=== PATIENT | male | born 1990 | race Caucasian/White ===

== ENCOUNTER 2021-11-14 07:08 | Emergency (ER) | payer MEDICAID ==
[~2021-11-14] VITALS: Ht 180.3 cm; Wt 127.7 kg
[~2021-11-14 07:08] MED LIST: ATOM40CA PO; BENZ200C47 PO; DEXT10CA PO; HYDR-3164 PO; HYDR25TA PO; LORA1TAB PO; LOXA10CA PO; LOXA5CAP PO
[2021-11-14 07:37] VITALS: BP 140/97
[2021-11-14] MEDS ORDERED: DIPHTH,PERTUSS(ACELL),TET TOX 0.5 ML DISP.SYRIN. VAX IM ONE (07:45)
--- NOTE | 2021-11-14 07:50 | PHYS DOC ---
Past Medical History Past Medical History: Bipolar, Other Additional Past Medical Histor: AUTISM, BEHAVIOR MOOD DISORDER, ADHD Past Surgical History: No Surgical History Additional Past Surgical Histo: CA mole removed from R)cheek when a child. Smoking Status: Never Smoker Alcohol Use: None Drug Use: None General Adult EDM: Chief Complaint: HAND PROBLEM HPI: HPI: Patient is a 31 year old male presents to the ER with a burn to his left thumb. Patient states that he burned his thumb on a piece of pizza yesterday. Denies any pain. Reports blistering of the volar aspect of the thumb. Unknown when last tetanus was. Review of Systems: Review of Systems: Constitutional: Denies fever or chills. [] Eyes: Denies change in visual acuity. [] HENT: Denies nasal congestion or sore throat. [] Respiratory: Denies cough or shortness of breath. [] Cardiovascular: Denies chest pain or edema. [] GI: Denies abdominal pain, nausea, vomiting, bloody stools or diarrhea. [] : Denies dysuria. [] Musculoskeletal: Denies back pain or joint pain. [] Integument: Blister and burn of the left thumb denies rash. [] Neurologic: Denies headache, focal weakness or sensory changes. [] Endocrine: Denies polyuria or polydipsia. [] Lymphatic: Denies swollen glands. [] Psychiatric: Denies depression or anxiety. [] Heart Score: C/O Chest Pain: No Risk Factors: Risk Factors: DM, Current or recent (<one month) smoker, HTN, HLP, family history of CAD, obesity. Risk Scores: Score 0 - 3: 2.5% MACE over next 6 weeks - Discharge Home Score 4 - 6: 20.3% MACE over next 6 weeks - Admit for Clinical Observation Score 7 - 10: 72.7% MACE over next 6 weeks - Early Invasive Strategies Current Medications: Current Medications Medications (Trade) Dose Ordered Sig/Jennifer Start Time Stop Time Status Last Admin Dose Admin Cephalexin HCl (Keflex) 500 mg BID 11/14/21 08:00 Diphtheria/ Tetanus/Acell Pertussis (Boostrix) 0.5 ml ONCE ONCE 11/14/21 07:45 11/14/21 07:47 DC Allergies: Allergies: Allergies Coded Allergies Type Severity Reaction Last Updated Verified citalopram Adverse Reaction Mild 11/14/21 Yes Physical Exam: PE: Constitutional: Well developed, well nourished, no acute distress, non-toxic appearance. [] HENT: Normocephalic, atraumatic, bilateral external ears normal, oropharynx moist, no oral exudates, nose normal. [] Eyes: PERRLA, EOMI, conjunctiva normal, no discharge. [] Neck: Normal range of motion, no tenderness, supple, no stridor. [] Cardiovascular:Heart rate regular rhythm, no murmur [] Lungs & Thorax: Bilateral breath sounds clear to auscultation [] Abdomen: Bowel sounds normal, soft, no tenderness, no masses, no pulsatile masses. [] Skin: Blistering of the left thumb. Warm, dry, no erythema, no rash. [] Back: No tenderness, no CVA tenderness. [] Extremities: No tenderness, no cyanosis, no clubbing, ROM intact, no edema. [] Neurologic: Alert and oriented X 3, normal motor function, normal sensory function, no focal deficits noted. [] Psychologic: Affect normal, judgement normal, mood normal. [] Current Patient Data: Vital Signs: Vital Signs Date Time Temp Pulse Resp B/P (MAP) Pulse Ox O2 Delivery O2 Flow Rate FiO2 11/14/21 07:37 98.4 103 16 140/97 (111) 98 Room Air 98.4 EKG: EKG: [] Radiology/Procedures: Radiology/Procedures: [] Course & Med Decision Making: Course & Med Decision Making Pertinent Labs and Imaging studies reviewed. (See chart for details) [] Tetanus is updated patient started on antibiotics. Mother does not want pain medication and states that she will manage with Tylenol as patient's pain is not that bad. Patient is right-hand dominant. AppEnsure Disclaimer: AppEnsure Disclaimer: This electronic medical record was generated, in whole or in part, using a voice recognition dictation system. Departure Departure Referrals: SANDY ARSHAD PA-C (PCP) CECILIA HOROWITZ DO Nov 14, 2021 07:50
[2021-11-14] MEDS ORDERED: CEPH500C PO (07:54)
[2021-11-14] MEDS ORDERED: CEPHALEXIN 250 MG CAPSULE. PO SCH (08:00)
== END 2021-11-14 08:11 | disposition home or self-care (01) ==
LOC: ER 07:08
DX: T23.212A Burn of second degree of left thumb (nail), initial encounter (principal); F31.9 Bipolar disorder, unspecified; F39 Unspecified mood [affective] disorder; F90.9 Attention-deficit hyperactivity disorder, unspecified type; Z88.8 Allergy status to other drugs, medicaments and biological substances; X10.1XXA Contact with hot food, initial encounter; Y93.89 Activity, other specified; Y92.89 Other specified places as the place of occurrence of the external cause; Y99.8 Other external cause status
CPT/HCPCS: 90471; 90715; 99283-25

== ENCOUNTER 2021-12-16 12:30 | Emergency (ER) | payer MEDICAID ==
[~2021-12-16] VITALS: Ht 180.3 cm; Wt 119.9 kg
[~2021-12-16 12:30] MED LIST changes: +CEPH500C PO
[2021-12-16 12:32] VITALS: BP 178/108
--- NOTE | 2021-12-16 13:25 | PHYS DOC ---
Past Medical History Past Medical History: Bipolar, Other Additional Past Medical Histor: AUTISM, BEHAVIOR MOOD DISORDER, ADHD Past Surgical History: No Surgical History Additional Past Surgical Histo: CA mole removed from R)cheek when a child. Smoking Status: Never Smoker Alcohol Use: None Drug Use: None General Adult EDM: Chief Complaint: OTHER COMPLAINTS HPI: HPI: Patient is a 31 year old with a history of autism and bipolar disorder who presents to the emergency department today with concerns for bruising. Mom states that she was giving him a haircut this morning when she noticed bruising on his upper back. She states that this afternoon at the [employer] she noticed bruising to his lower abdomen as well as to both anterior thighs. She denies any recent falls or trauma. She denies any recent infectious symptoms. She denies any fevers or chills. He has not had any changes in his diet. He has not had any nasal bleeding or bleeding from his gums. They deny any blood in his urine or stools. Review of Systems: Review of Systems: Constitutional: Denies fever or chills. [] Eyes: Denies change in visual acuity. [] HENT: Denies nasal congestion or sore throat. [] Respiratory: Denies cough or shortness of breath. [] Cardiovascular: Denies chest pain or edema. [] GI: Denies abdominal pain, nausea, vomiting, bloody stools or diarrhea. [] : Denies dysuria. [] Musculoskeletal: Denies back pain or joint pain. [] Integument: Denies rash. [] Neurologic: Denies headache, focal weakness or sensory changes. [] Endocrine: Denies polyuria or polydipsia. [] Lymphatic: Denies swollen glands. [] Psychiatric: Denies depression or anxiety. [] Heart Score: C/O Chest Pain: No Family History: Family History: Noncontributory Allergies: Allergies: Allergies Coded Allergies Type Severity Reaction Last Updated Verified citalopram Adverse Reaction Mild 11/14/21 Yes Physical Exam: PE: Constitutional: Well developed, well nourished, no acute distress, non-toxic appearance. [] HENT: Normocephalic, atraumatic, bilateral external ears normal, oropharynx moist, no oral exudates, nose normal. [] Eyes: PERRLA, EOMI, conjunctiva normal, no discharge. [] Neck: Normal range of motion, no tenderness, supple, no stridor. [] Cardiovascular:Heart rate regular rhythm, no murmur [] Lungs & Thorax: Bilateral breath sounds clear to auscultation [] Abdomen: Bowel sounds normal, soft, no tenderness, no masses, no pulsatile masses. [] Skin: There is bruising noted to the upper back and anterior thighs bilaterally in the lower stomach. There are no petechiae. Back: No tenderness, no CVA tenderness. [] Extremities: No tenderness, no cyanosis, no clubbing, ROM intact, no edema. [] Neurologic: Alert and oriented X 3, normal motor function, normal sensory function, no focal deficits noted. [] Psychologic: Affect normal, judgement normal, mood normal. [] Current Patient Data: Labs: Laboratory Tests Test 12/16/21 13:21 White Blood Count 10.9 x10^3/uL Red Blood Count 5.32 x10^6/uL Hemoglobin 14.0 g/dL Hematocrit 43.0 % Mean Corpuscular Volume 81 fL Mean Corpuscular Hemoglobin 26 pg Mean Corpuscular Hemoglobin Concent 32 g/dL Red Cell Distribution Width 16.1 % Platelet Count 346 x10^3/uL Neutrophils (%) (Auto) 61 % Lymphocytes (%) (Auto) 26 % Monocytes (%) (Auto) 8 % Eosinophils (%) (Auto) 4 % Basophils (%) (Auto) 1 % Neutrophils # (Auto) 6.6 x10^3/uL Lymphocytes # (Auto) 2.8 x10^3/uL Monocytes # (Auto) 0.9 x10^3/uL Eosinophils # (Auto) 0.4 x10^3/uL Basophils # (Auto) 0.1 x10^3/uL Prothrombin Time 14.4 SEC Prothromb Time International Ratio 1.2 Activated Partial Thromboplast Time 30 SEC Fibrinogen 426 mg/dL Sodium Level 141 mmol/L Potassium Level 3.6 mmol/L Chloride Level 105 mmol/L Carbon Dioxide Level 26 mmol/L Anion Gap 10 Blood Urea Nitrogen 13 mg/dL Creatinine 0.8 mg/dL Estimated GFR (Cockcroft-Gault) 112.8 BUN/Creatinine Ratio 16 Glucose Level 100 mg/dL Calcium Level 8.9 mg/dL Total Bilirubin 0.4 mg/dL Aspartate Amino Transf (AST/SGOT) 34 U/L Alanine Aminotransferase (ALT/SGPT) 53 U/L Alkaline Phosphatase 127 U/L Total Protein 7.3 g/dL Albumin 3.5 g/dL Albumin/Globulin Ratio 0.9 Vital Signs: Vital Signs Date Time Temp Pulse Resp B/P (MAP) Pulse Ox O2 Delivery O2 Flow Rate FiO2 12/16/21 12:32 99.5 124 20 178/108 (131) 98 Room Air 99.5 EKG: EKG: [] Radiology/Procedures: Radiology/Procedures: [] Course & Med Decision Making: Course & Med Decision Making Patient remained hemodynamically stable in the emergency department. He was evaluated the bedside physical exam. Basic labs were obtained including CBC, BMP, and coags. These labs have returned and are unremarkable. They show no evidence for the patient's ecchymosis. Given this I think we can safely discharge the patient home I have advised his mother that she he should follow- up with his PCP over the next week. Connor Disclaimer: Connor Disclaimer: This electronic medical record was generated, in whole or in part, using a voice recognition dictation system. Departure Departure Impression: Primary Impression: Ecchymoses, spontaneous Disposition: HOME / SELF CARE / HOMELESS Condition: STABLE Referrals: ROXANNE YARBROUGH MD (PCP) Patient Instructions: Hematoma, [id number] MAGALIE ROBISON MD December 16, 2021 13:25
[2021-12-16 13:39] LABS: CALCIUM 8.9 mg/dL (8.5-10.1); CREATININE 0.8 mg/dL (0.7-1.3); GFR 112.8; POTASSIUM 3.6 mmol/L (3.5-5.1)
[2021-12-16 13:40] LABS: PROTHROMBIN TIME PATIENT 14.4 SEC (11.7-14.0)
[2021-12-16 13:45] LABS: ALBUMIN 3.5 g/dL (3.4-5.0); ALBUMIN/GLOBULIN RATIO 0.9 (1.0-1.7); TOTAL BILIRUBIN 0.4 mg/dL (0.2-1.0); TOTAL PROTEIN 7.3 g/dL (6.4-8.2)
[2021-12-16 14:00] LABS: BASO # 0.1 x10^3/uL (0.0-0.2); BASO % 1 % (0-3); EOS # 0.4 x10^3/uL (0.0-0.7); EOS % 4 % (0-3); LYMPH # 2.8 x10^3/uL (1.0-4.8); LYMPH % 26 % (24-48); MEAN CORPUSCULAR HEMOGLOBIN 26 pg (25-35); MEAN CORPUSCULAR HGB CONC 32 g/dL (31-37); MEAN CORPUSCULAR VOLUME 81 fL (79-100); MONO # 0.9 x10^3/uL (0.0-1.1); MONO % 8 % (0-9); NEUT # 6.6 x10^3/uL (1.8-7.7); NEUT % 61 % (31-73); PLATELET COUNT 346 x10^3/uL (140-400); RED BLOOD COUNT 5.32 x10^6/uL (4.30-5.70); RED CELL DISTRIBUTION WIDTH 16.1 % (11.5-14.5); WHITE BLOOD COUNT 10.9 x10^3/uL (4.0-11.0)
== END 2021-12-16 14:52 | disposition home or self-care (01) ==
LOC: ER 12:30
DX: S20.223A Contusion of bilateral back wall of thorax, initial encounter (principal); F31.9 Bipolar disorder, unspecified; F90.9 Attention-deficit hyperactivity disorder, unspecified type; X58.XXXA Exposure to other specified factors, initial encounter; Y93.89 Activity, other specified; Y92.89 Other specified places as the place of occurrence of the external cause; Y99.8 Other external cause status
CPT/HCPCS: 36415; 80053; 85025; 85384; 85610; 85730; 99283